=== PATIENT | female | born 1930 | race Caucasian/White ===

== ENCOUNTER 2017-05-17 10:05 | Day surgery (SDC) | payer MEDICARE, OTHER ==
[~2017-05-17 10:05] MED LIST: ACET325 PO; AMLO10 PO; ASPI325 PO; BUME2 PO; CALCAVITDA PO; CHOL10002 PO; CYCL0.05OP BOTHEYES; FISH1000 PO; FLAX PO; FURO80 PO; GLIP10 PO; GLUC500 PO; GLYB5 PO; GUAI600T33 PO; Hair, Skin & N1 EACH PO; INSULANPEN SC; Januvia50 MG; Klor-Con 1010 MEQ PO; LEVFLO500 PO; LOSA50 PO; METR500 PO; Ocuvite Softge1 EAC1 PO; POTCIT5 PO; PROBIOTIC1 EAC1 PO; SACC250C PO; THEO300ERC PO; TRAV.004OP BOTHEYES; VANC125 PO; VIT1CAPS12 PO
== END 2017-05-17 22:41 | disposition home or self-care (01) ==
LOC: RAD 10:05
DX: J20.9 Acute bronchitis, unspecified (principal)
CPT/HCPCS: 71046

== ENCOUNTER 2018-12-19 09:35 | Emergency (ER) | payer MEDICARE, OTHER ==
[~2018-12-19] VITALS: Ht 154.9 cm; Wt 72.6 kg
[2018-12-19 10:17] LABS: BASOPHILS ABSOLUTE AUTO 0.04 K/mm3 (0.00-0.23); BASOPHILS PERCENT AUTO 0 % (0-2); EOSINOPHILS ABSOLUTE AUTO 0.13 K/mm3 (0.00-0.68); EOSINOPHILS PERCENT AUTO 1 % (0-6); Hematocrit 45.6 % (33.0-51.0); Hemoglobin 14.7 g/dL (11.5-16.0); IMMATURE GRAN ABSOLUTE AUTO 0.07 K/mm3 (0.00-0.10); IMMATURE GRAN PERCENT AUTO 1 % (0-1); LYMPHOCYTES ABSOLUTE AUTO 1.95 K/mm3 (0.84-5.20); LYMPHOCYTES PERCENT AUTO 18 % (21-46); MONOCYTES ABSOLUTE AUTO 1.05 K/mm3 (0.16-1.47); MONOCYTES PERCENT AUTO 9 % (4-13); Mean Corpuscular HGB 29.8 pg (26.0-34.0); Mean Corpuscular HGB Conc 32.2 g/dL (31.5-36.5); Mean Corpuscular Volume 93 fL (80-100); Mean Platelet Volume 11.1 fL (9.1-12.4); NEUTROPHILS ABSOLUTE AUTO 7.92 K/mm3 (1.96-9.15); NEUTROPHILS PERCENT AUTO 71 % (41-73); Platelet Count 188 K/mm3 (150-400); RDW Coefficient Variation 13.7 % (11.7-14.2); RDW Standard Deviation 46.9 fL (35.1-46.3); Red Blood Cell Count 4.93 M/mm3 (3.80-5.20); White Blood Cell Count 11.16 K/mm3 (4.00-11.30)
[2018-12-19 10:30] LABS: Albumin, Blood 3.4 g/dL (3.4-5.0); Bilirubin, Total 0.3 mg/dL (0.1-1.0); Calcium, Blood 9.9 mg/dL (8.5-10.1); Creatinine, Blood 1.5 mg/dL (0.40-1.00); Globulin, Blood 3.5 g/dL (2.2-4.0); Potassium, Blood 4.2 mmol/L (3.5-5.5); Total Protein, Blood 6.9 g/dL (6.4-8.2)
[2018-12-19] MEDS ORDERED: GABA100 PO (10:42)
[2018-12-19] MEDS ORDERED: AMLO10 PO (10:43)
[2018-12-19] MEDS ORDERED: PRED5 PO (10:44)
[2018-12-19 11:49] LABS: Source, Urine Catheter
[2018-12-19 12:01] LABS: Bilirubin, Urine Neg (Neg); Blood, Urine Neg (Neg); Glucose Qualitative, Urine Neg (Neg); Ketones, Urine Neg (Neg); Leukocyte Esterase, Urine Neg (Neg); Nitrite, Urine Neg (Neg); Protein, Urine 4+ (Neg); Specific Gravity, Urine 1.015 (1.003-1.022); Urobilinogen, Urine NORM (Normal)
[2018-12-19 12:10] LABS: Appearance, Urine Clear (Clear); Color, Urine Yellow (P-Yellow)
[2018-12-19 12:12] LABS: Bacteria Few /hpf; Red Blood Cells, Urine 0-2 /hpf (0-2); Squamous Epithelial Cells Rare /hpf (Few)
[2018-12-19] MEDS ORDERED: Zofran4 MG PO (12:51)
[2018-12-19] MEDS ORDERED: Norco 5-325 Ta1 EACH PO (12:51)
== END 2018-12-19 13:37 | disposition home or self-care (01) ==
LOC: ER 09:35
PROVIDERS: Emergency Medicine; Physician Assistant
DX: K57.30 Diverticulosis of large intestine without perforation or abscess without bleeding (principal); K59.00 Constipation, unspecified; N20.0 Calculus of kidney; Z88.8 Allergy status to other drugs, medicaments and biological substances; Z79.899 Other long term (current) drug therapy; Z79.4 Long term (current) use of insulin; Z79.52 Long term (current) use of systemic steroids; I13.0 Hypertensive heart and chronic kidney disease with heart failure and stage 1 through stage 4 chronic kidney disease, or unspecified chronic kidney disease; I50.9 Heart failure, unspecified; N18.9 Chronic kidney disease, unspecified; E11.22 Type 2 diabetes mellitus with diabetic chronic kidney disease; Z87.891 Personal history of nicotine dependence
CPT/HCPCS: 36415; 51701; 74176; 80053; 81001; 83690; 85025; 93005; 93010; 96361-59; 96374-59; 96375-59; 99284-25; J2405; J3010; J7030